=== PATIENT | female | born 1950 | race Caucasian/White ===

== ENCOUNTER → 2016-06-28 | Outpatient (REF) | payer BC | LOC: M SFHCWAGY 09:54 | PROVIDERS: ATTEND Nurse Practitioner Family | DX: Z12.4 Encounter for screening for malignant neoplasm of cervix (principal) ==

== ENCOUNTER → 2016-09-12 | Outpatient (CLI) | payer BC ==
--- NOTE | 2016-09-12 11:58 | REP ---
BILATERAL MAMMOGRAM: History of left breast cancer with malignant lumpectomy left breast 2007. Bilateral mammography performed in the MLO and CC projections. Comparison made with multiple prior exams, most recently 09/12/2015. New tiny calcifications are seen adjacent to a metallic clip from a prior stereotactic biopsy in the upper outer quadrant of the right breast. Intramammary lymph nodes in the upper outer quadrant of the right breast are stable. No other new mass or clustered microcalcifications are seen bilaterally. IMPRESSION: ACR 0 incomplete. New tiny calcifications in the upper outer quadrant of the right breast. Recommend magnification views to further evaluation. BI-RADS/ACR category 0 mammogram. Incomplete: Additional imaging and/or prior images are needed before a final assessment can be assigned. This mammogram was interpreted with the aid of an FDA-approved computer-aided detection system. A. Negative x-ray reports should not delay biopsy if a dominant or clinically suspicious mass is present. B. Four to eight percent of cancers are not identified by x-ray. C. Adenosis and dense breasts may obscure an underlying neoplasm. The patient states she had a clinical breast exam in 06/2016. The patient letter being requested is M0. Signed by Aries Spear MD 09/12/2016 04:55 P
== END ==
LOC: M RAD 09:18
PROVIDERS: ATTEND Nurse Practitioner Family
DX: Z12.31 Encounter for screening mammogram for malignant neoplasm of breast (principal)

== ENCOUNTER → 2016-09-14 | Outpatient (CLI) | payer BC ==
--- NOTE | 2016-09-14 09:59 | REP ---
DIAGNOSTIC MAMMOGRAM RIGHT BREAST: Diagnostic mammogram right breast performed with multiple magnification views obtained. These magnification views confirm the presence of new clustered microcalcifications near the clip in the upper outer quadrant of the right breast. Recommend needle localization and excisional biopsy. Calcifications appear too close to the clip to safely perform sterotactic biopsy. IMPRESSION: ACR 4 suspicious. New clustered tiny pleomorphic microcalcifications in the upper outer quadrant of the right breast. They are quite close to a metallic marking clip which has been present for several years. I do not believe sterotactic biopsy could be safely performed and therefore needle localization and excisional biopsy is recommended. The patient letter being requested is M4. Signed by Aries Spear MD 09/14/2016 07:57 P
== END ==
LOC: M RAD 08:37
PROVIDERS: ATTEND Nurse Practitioner Family
DX: R92.0 Mammographic microcalcification found on diagnostic imaging of breast (principal)

== ENCOUNTER → 2016-10-15 | Outpatient (CLI) | payer BC ==
[~2016-10-15] MED LIST: LIDOCAINE 1% MDV 20ML VIAL As Ordered ONE
--- NOTE | 2016-10-15 13:14 | REP ---
POST BIOPSY MAMMOGRAM RIGHT BREAST: Post biopsy mammogram right breast performed, following sterotactic biopsy of clustered microcalcifications in the upper outer quadrant. Metallic clip is seen at the site of the calcifications. The calcifications are no longer visualized. Signed by Aries Spear MD 10/15/2016 05:12 P
--- NOTE | 2016-10-15 13:17 | REP ---
SPECIMEN RADIOGRAPH: A specimen radiograph performed. There are multiple specimens from sterotactic biopsy of clustered microcalcifications of the right breast. Multiple calcifications are seen in the specimens. Signed by Aries Spear MD 10/15/2016 05:13 P
--- NOTE | 2016-10-16 17:39 | REP ---
STEREOTACTIC RIGHT BREAST BIOPSY: The procedure was performed under the personal supervision of Dr. Spear. The patient has a history of new clustered tiny pleomorphic microcalcifications in the upper outer quadrant of the right breast seen on a previous mammogram dated 09/14/2016. The risks and benefits of the procedure were explained to the patient and informed consent was obtained. The calcifications were localized using stereotactic mammographic guidance. The skin was prepped and draped in a sterile fashion. 1% lidocaine was used as a local anesthetic. A 8-gauge suction-assisted Mammotome needle was inserted and 5 core biopsy samples were obtained. Specimen radiograph demonstrates the presence of calcifications to be within the specimen. A marker clip was placed at the biopsy site. The patient tolerated the procedure well and there were no immediate complications. After the appropriate amount of monitored convalescence the patient was discharged from the department. Reviewed by CALVIN Berry 10/17/2016 04:31 PEdited and Signed by Aries Spear MD 10/17/2016 07:52 P
== END | disposition home or self-care (01) ==
LOC: M RADPRO 11:41
PROVIDERS: ATTEND Surgery
DX: R92.0 Mammographic microcalcification found on diagnostic imaging of breast (principal); N60.81 Other benign mammary dysplasias of right breast; N60.11 Diffuse cystic mastopathy of right breast; E78.5 Hyperlipidemia, unspecified; I10 Essential (primary) hypertension; E07.9 Disorder of thyroid, unspecified; H40.9 Unspecified glaucoma; Z96.9 Presence of functional implant, unspecified; Z79.1 Long term (current) use of non-steroidal anti-inflammatories (NSAID); Z88.8 Allergy status to other drugs, medicaments and biological substances

== ENCOUNTER → 2017-07-08 | Outpatient (REF) | payer MEDICARE | LOC: M SFHCWAGY 11:26 | DX: Z12.4 Encounter for screening for malignant neoplasm of cervix (principal); N95.2 Postmenopausal atrophic vaginitis; Z12.12 Encounter for screening for malignant neoplasm of rectum | CPT/HCPCS: G0123 ==

== ENCOUNTER → 2017-09-16 | Outpatient (CLI) | payer MEDICARE | LOC: M WHC 09:31 | DX: Z12.31 Encounter for screening mammogram for malignant neoplasm of breast (principal); R92.8 Other abnormal and inconclusive findings on diagnostic imaging of breast; N95.9 Unspecified menopausal and perimenopausal disorder; Z78.0 Asymptomatic menopausal state; Z85.3 Personal history of malignant neoplasm of breast; Z98.890 Other specified postprocedural states | CPT/HCPCS: 77067 ==

== ENCOUNTER → 2018-09-16 | Outpatient (CLI) | payer MEDICARE ==
--- NOTE | 2018-09-16 09:47 | REPMRS ---
Patient History The patient states she had a clinical breast exam in 07/2018. Patient is postmenopausal and has history of cancer in the left breast at age 57. Benign radio exam breast specimen of the right breast, October 15, 2016. Benign stereotatic loc for ea lesion of the right breast, October 15, 2016. Malignant lumpectomy of the left breast, June 13, 2007. Taking tamoxifen for 8 years. Digital Woman Screen Mammo: September 16, 2018 - Exam #: [id number] Bilateral CC and MLO view(s) were taken. Technologist: Ann Galan, Technologist Prior study comparison: September 16, 2017, digital woman screen mammo performed at [facility]. September 12, 2016, bilateral digital mammo screening bilat, performed at [facility]. September 12, 2015, bilateral digital mammo screening bilat, performed at [facility]. FINDINGS: There are scattered fibroglandular densities. There are previously placed needle biopsy marker clips again noted in both breasts, two on the left and one on the right. The clip on the right is seen within a nodular density. This nodular density has regressed since September 16, 2017. There is a benign stable nodule laterally in the right breast. There has been no change in the appearance of the mammogram from the prior studies. There is a mild amount of scattered fibroglandular density which is fairly symmetric. There is no interval development of dominant mass, architectural distortion, or clustered microcalcification suggestive of malignancy. 3-D tomosynthesis shows no additional findings. Assessment: BI-RADS/ACR category 2 mammogram. Benign Findings. Recommendation Routine screening mammogram of both breasts in 1 year (for women over age 40). This mammogram was interpreted with the aid of an FDA-approved computer-aided dectection system. Electronically Signed By: Rory Son MD 09/16/18 [id number]
== END ==
LOC: M WHC 09:12
PROVIDERS: ATTEND Nurse Practitioner Family
DX: Z12.31 Encounter for screening mammogram for malignant neoplasm of breast (principal); Z78.0 Asymptomatic menopausal state; Z85.3 Personal history of malignant neoplasm of breast; Z92.23 Personal history of estrogen therapy

== ENCOUNTER → 2019-09-17 | Outpatient (CLI) | payer MEDICARE ==
--- NOTE | 2019-09-17 12:15 | REPMRS ---
Patient History The patient states she had a clinical breast exam in September 2019.Benign radio exam breast specimen of the right breast, October 15, 2016. Benign stereotatic loc for ea lesion of the right breast, October 15, 2016. Malignant lumpectomy of the left breast, June 13, 2007. Taking tamoxifen for 8 years. Digital Woman Screen Mammo: September 17, 2019 - Exam #: [id number] Bilateral CC and MLO view(s) were taken. Technologist: Avis Vance, Technologist Prior study comparison: September 16, 2018, bilateral digital woman screen mammo performed at [facility]. September 16, 2017, digital woman screen mammo performed at [facility]. FINDINGS: There are scattered fibroglandular densities. The Volpara volumetric breast density category is:B. There is a needle biopsy marker clip in a gradually shrinking density in the right breast consistent with post biopsy change. There are two stable benign nodules elsewhere in the right breast. There are two needle biopsy marker clips again noted in the left breast. There has been no change in the appearance of the mammogram from the prior studies. There is a mild amount of scattered fibroglandular density which is fairly symmetric. There is no interval development of dominant mass, architectural distortion, or grouped microcalcification suggestive of malignancy. 3-D tomosynthesis shows no additional findings. Assessment: BI-RADS/ACR category 2 mammogram. Benign Findings. Recommendation Routine screening mammogram of both breasts in 1 year (for women over age 40). This mammogram was interpreted with the aid of an FDA-approved computer-aided dectection system. Electronically Signed By: Rory Son MD 09/17/19 [id number]
== END ==
LOC: M WHC 10:04
PROVIDERS: ATTEND Nurse Practitioner Family
DX: Z01.419 Encounter for gynecological examination (general) (routine) without abnormal findings (principal); Z12.31 Encounter for screening mammogram for malignant neoplasm of breast; Z85.3 Personal history of malignant neoplasm of breast; Z86.018 Personal history of other benign neoplasm; Z92.29 Personal history of other drug therapy; Z12.12 Encounter for screening for malignant neoplasm of rectum
CPT/HCPCS: 77063; 77067; 82270; G0101; G0123

== ENCOUNTER → 2019-09-17 | Outpatient (REF) | payer MEDICARE | LOC: M SFHCWAGY 17:09 | PROVIDERS: ATTEND Nurse Practitioner Family | DX: Z12.4 Encounter for screening for malignant neoplasm of cervix (principal); N95.2 Postmenopausal atrophic vaginitis ==

== ENCOUNTER → 2020-09-20 | Outpatient (CLI) | payer MEDICARE ==
--- NOTE | 2020-09-20 12:25 | REPMRS ---
Patient History The patient states she had a clinical breast exam in 09/2020. Patient is postmenopausal and has history of cancer in the left breast at age 57. Family history of endometrial cancer at age 98 in mother. Benign radio exam breast specimen of the right breast, October 15, 2016. Benign stereotatic loc for ea lesion of the right breast, October 15, 2016. Malignant lumpectomy of the left breast, June 13, 2007. Taking tamoxifen for 9 years. Patient states no breast complaints today. Patient has signed MRS History Sheet. Digital Woman Screen Mammo: September 20, 2020 - Exam #: [id number] Bilateral CC and MLO view(s) were taken. Technologist: Jalyn Arellano, Technologist Prior study comparison: September 17, 2019, bilateral digital woman screen mammo performed at [facility]. September 16, 2018, bilateral digital woman screen mammo performed at [facility]. September 16, 2017, digital woman screen mammo performed at [facility]. FINDINGS: There are scattered fibroglandular densities. The Volpara volumetric breast density category is:B. There are needle biopsy marker clips again noted bilaterally, 2 on the left and 1 on the right. There are stable well-circumscribed nodular densities in the right breast as well unchanged. There has been no change in the appearance of the mammogram from the prior studies. There is a mild amount of scattered fibroglandular density which is fairly symmetric. There is no interval development of dominant mass, architectural distortion, or grouped microcalcification suggestive of malignancy. 3-D tomosynthesis shows no additional findings. Assessment: BI-RADS/ACR category 2 mammogram. Benign Findings. Recommendation Routine screening mammogram of both breasts in 1 year (for women over age 40). This mammogram was interpreted with the aid of an FDA-approved computer-aided dectection system. Electronically Signed By: Rory Son MD 09/20/20 [id number]
== END ==
LOC: M WHC 10:09
PROVIDERS: ATTEND Obstetrics & Gynecology
DX: Z01.419 Encounter for gynecological examination (general) (routine) without abnormal findings (principal); Z12.31 Encounter for screening mammogram for malignant neoplasm of breast; Z78.0 Asymptomatic menopausal state; Z85.3 Personal history of malignant neoplasm of breast; Z80.49 Family history of malignant neoplasm of other genital organs; Z92.29 Personal history of other drug therapy
CPT/HCPCS: 77063; 77067; G0101